=== PATIENT | male | born 1950 | race Caucasian/White ===

== ENCOUNTER 2019-10-14 10:14 | Emergency (ER) | payer MEDICARE ==
[2019-10-14 10:20] VITALS: RESP 16
[2019-10-14] MEDS ORDERED: SODIUM CHLORIDE 0.9% 500 ML 500 ML IV STA (10:30)
[2019-10-14] MEDS ORDERED: SODIUM CHLORIDE 0.9% 1,000 ML IV ONE (10:31)
--- NOTE | 2019-10-14 11:40 | XR ---
EXAMINATION TYPE: XR KUB DATE OF EXAM: 10/14/2019 11:24 AM CLINICAL HISTORY: Abdominal pain and diarrhea for 4 days. TECHNIQUE: Two Upright KUB images of the abdomen are obtained. COMPARISON: None. FINDINGS: Some paucity of bowel gas. Scattered gas is seen in some nondistended and a few slightly pr ominent small bowel loops in the left abdomen. Few scattered air-fluid levels are present. Gas and fe shaheen material is seen in non-distended colon in the right abdomen. There is no visceromegaly or pneumo peritoneum. The lung bases are clear. Surgical change L4-S1 level is present. Superior to this there is scoliotic curvature. Partial visualization of surgical change right hip level. Vascular calcificat ion overlying the abdominal aorta. IMPRESSION: Overall nonspecific but favor nonobstructive bowel gas pattern.
[2019-10-14 12:11] VITALS: PULSE 63
[2019-10-14 12:25] LABS: Appearance,Urine Clear (Clear); Bilirubin,Urine Negative (Negative); Blood,Urine Negative (Negative); Color,Urine Yellow; Glucose,Urine (UA) Negative (Negative); Ketones,Urine Negative (Negative); Leukocyte Esterase,Urine Negative (Negative); Nitrite,Urine Negative (Negative); PH, Urine 5.5 (5.0-8.0); Protein,Urine Negative (Negative); Specific Gravity,Urine 1.011 (1.001-1.035); Urobilinogen,Urine <2.0 mg/dL (<2.0)
[2019-10-14 12:33] LABS: Basophils % (A) 0 %; Eosinophils # (A) 0.1 k/uL (0-0.7); Eosinophils % (A) 1 %; HCT 35.4 % (39.0-53.0); HGB 11.6 gm/dL (13.0-17.5); Lymphocytes # (A) 0.7 k/uL (1.0-4.8); Lymphocytes % (A) 7 %; MCHC 32.8 g/dL (31.0-37.0); MCV 94.5 fL (80.0-100.0); Mean Platelet Volume 6.5; Monocytes # (A) 0.5 k/uL (0-1.0); Monocytes % (A) 5 %; Neutrophils # (A) 8.6 k/uL (1.3-7.7); Neutrophils % (A) 87 %; Platelet Count 305 k/uL (150-450); RBC 3.75 m/uL (4.30-5.90); RDW 13.1 % (11.5-15.5); WBC 9.9 k/uL (3.8-10.6)
[2019-10-14 12:39] LABS: ALT 42 U/L (4-49); AST 37 U/L (17-59); African American GFR (CKD) >90 (>60 ml/min/1.73 sqM); Albumin 3.5 g/dL (3.5-5.0); Alkaline Phosphatase 100 U/L (38-126); Anion Gap 9 mmol/L; Blood Urea Nitrogen 20 mg/dL (9-20); Calcium 9.3 mg/dL (8.4-10.2); Carbon Dioxide 24 mmol/L (22-30); Chloride 101 mmol/L (98-107); Glucose 104 mg/dL (74-99); Non-African American GFR(CKD) 80 (>60 ml/min/1.73 sqM); Potassium 4.9 mmol/L (3.5-5.1); Sodium 134 mmol/L (137-145); Total Bilirubin 0.4 mg/dL (0.2-1.3); Total Protein 6.5 g/dL (6.3-8.2)
--- NOTE | 2019-10-14 13:27 | ED ---
Nausea/Vomiting/Diarrhea HPI - General Chief complaint: Nausea/Vomiting/Diarrhea Stated complaint: C-diff Time Seen by Provider: 10/14/19 10:30 Source: patient Mode of arrival: ambulatory Limitations: no limitations - History of Present Illness Initial comments: 69-year-old male presenting today for chief complaint of diarrhea abdominal cramping. 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 Patient states a drink from a rain water tank he states that he has had some soft stools and abdominal cramping since he states his on-and-off nausea none currently. Denies vomiting. He denies any fevers bloody stools or dark black stools. Patient is no additional complaints upon arrival he appears well nontoxic no acute distress. - Related Data Allergies Allergy/AdvReac Type Severity Reaction Status Date / Time Sulfa (Sulfonamide Allergy Unknown Verified 10/14/19 10:20 Antibiotics) Childhood Review of Systems ROS Statement: Those systems with pertinent positive or pertinent negative responses have been documented in the HPI. ROS Other: All systems not noted in ROS Statement are negative. Past Medical History Past Medical History: Hypertension History of Any Multi-Drug Resistant Organisms: None Reported Past Surgical History: Joint Replacement Additional Past Surgical History / Comment(s): hip replaced, Past Psychological History: No Psychological Hx Reported Smoking Status: Former smoker Past Alcohol Use History: Occasional Past Drug Use History: None Reported General Exam - General Exam Comments Initial Comments: General: The patient is awake and alert, in no distress, and does not appear acutely ill. Eye: Pupils are equal, round and reactive to light, extra-ocular movements are intact. No nystagmus. There is normal conjunctiva bilaterally. No signs of i cterus. Ears, nose, mouth and throat: There are moist mucous membranes and no oral lesions. Neck: The neck is supple, there is no tenderness or JVD. Cardiovascular: There is a regular rate and rhythm. No murmur, rub or gallop is appreciated. Respiratory: Lungs are clear to auscultation, respirations are non-labored, breath sounds are equal. No wheezes, stridor, rales, or rhonchi. Gastrointestinal: Soft, non-distended, non-tender abdomen without masses or organomegaly noted. There is no rebound or guarding present. Musculoskeletal: Normal ROM, no tenderness. Strength 5/5. Sensation intact. Pulses equal bilaterally 2+. Neurological: A&O x 3. CN II-XII intact, There are no obvious motor or sensory deficits. Coordination appears grossly intact. Speech is normal. Skin: Skin is warm and dry and no rashes or lesions are noted. Psychiatric: Cooperative, appropriate mood & affect, normal judgment. Limitations: no limitations Course Vital Signs 10/14/19 10/14/19 10/14/19 10:16 12:07 13:52 Temperature 98.7 F 97.9 F Pulse Rate 72 63 63 Respiratory 16 16 16 Rate Blood Pressure 131/86 123/70 138/81 O2 Sat by Pulse 99 97 98 Oximetry Medical Decision Making - Medical Decision Making c diff (-). KUB WNL. Patient labs stable. Patient abdomen soft nontender. no fevers. no bloody stools. Recommend symptomatic treatment wtih pcp f/u. return parameters and importance of pcp f/u were discussed. - Lab Data Result diagrams: 10/14/19 11:42 10/14/19 11:42 Lab Results 10/14/19 10/14/19 10/14/19 Range/Units 11:42 11:42 12:13 WBC 9.9 (3.8-10.6) k/uL RBC 3.75 L (4.30-5.90) m/uL Hgb 11.6 L (13.0-17.5) gm/dL Hct 35.4 L (39.0-53.0) % MCV 94.5 (80.0-100.0) fL MCH 31.0 (25.0-35.0) pg MCHC 32.8 (31.0-37.0) g/dL RDW 13.1 (11.5-15.5) % Plt Count 305 (150-450) k/uL Neutrophils % 87 % Lymphocytes % 7 % Monocytes % 5 % Eosinophils % 1 % Basophils % 0 % Neutrophils # 8.6 H (1.3-7.7) k/uL Lymphocytes # 0.7 L (1.0-4.8) k/uL Monocytes # 0.5 (0-1.0) k/uL Eosinophils # 0.1 (0-0.7) k/uL Basophils # 0.0 (0-0.2) k/uL Sodium 134 L (137-145) mmol/L Potassium 4.9 (3.5-5.1) mmol/L Chloride 101 (98-107) mmol/L Carbon Dioxide 24 (22-30) mmol/L Anion Gap 9 mmol/L BUN 20 (9-20) mg/dL Creatinine 0.98 (0.66-1.25) mg/dL Est GFR (CKD-EPI)AfAm >90 (>60 ml/min/1.73 sqM) Est GFR (CKD-EPI)NonAf 80 (>60 ml/min/1.73 sqM) Glucose 104 H (74-99) mg/dL Calcium 9.3 (8.4-10.2) mg/dL Total Bilirubin 0.4 (0.2-1.3) mg/dL AST 37 (17-59) U/L ALT 42 (4-49) U/L Alkaline Phosphatase 100 (38-126) U/L Total Protein 6.5 (6.3-8.2) g/dL Albumin 3.5 (3.5-5.0) g/dL Lipase 28 (23-300) U/L Urine Color Yellow Urine Appearance Clear (Clear) Urine pH 5.5 (5.0-8.0) Ur Specific Morley 1.011 (1.001-1.035) Urine Protein Negative (Negative) Urine Glucose (UA) Negative (Negative) Urine Ketones Negative (Negative) Urine Blood Negative (Negative) Urine Nitrite Negative (Negative) Urine Bilirubin Negative (Negative) Urine Urobilinogen <2.0 (<2.0) mg/dL Ur Leukocyte Esterase Negative (Negative) C. difficile (EIA) Intrp (Negative) 10/14/19 Range/Units 12:13 WBC (3.8-10.6) k/uL RBC (4.30-5.90) m/uL Hgb (13.0-17.5) gm/dL Hct (39.0-53.0) % MCV (80.0-100.0) fL MCH (25.0-35.0) pg MCHC (31.0-37.0) g/dL RDW (11.5-15.5) % Plt Count (150-450) k/uL Neutrophils % % Lymphocytes % % Monocytes % % Eosinophils % % Basophils % % Neutrophils # (1.3-7.7) k/uL Lymphocytes # (1.0-4.8) k/uL Monocytes # (0-1.0) k/uL Eosinophils # (0-0.7) k/uL Basophils # (0-0.2) k/uL Sodium (137-145) mmol/L Potassium (3.5-5.1) mmol/L Chloride (98-107) mmol/L Carbon Dioxide (22-30) mmol/L Anion Gap mmol/L BUN (9-20) mg/dL Creatinine (0.66-1.25) mg/dL Est GFR (CKD-EPI)AfAm (>60 ml/min/1.73 sqM) Est GFR (CKD-EPI)NonAf (>60 ml/min/1.73 sqM) Glucose (74-99) mg/dL Calcium (8.4-10.2) mg/dL Total Bilirubin (0.2-1.3) mg/dL AST (17-59) U/L ALT (4-49) U/L Alkaline Phosphatase (38-126) U/L Total Protein (6.3-8.2) g/dL Albumin (3.5-5.0) g/dL Lipase (23-300) U/L Urine Color Urine Appearance (Clear) Urine pH (5.0-8.0) Ur Specific Morley (1.001-1.035) Urine Protein (Negative) Urine Glucose (UA) (Negative) Urine Ketones (Negative) Urine Blood (Negative) Urine Nitrite (Negative) Urine Bilirubin (Negative) Urine Urobilinogen (<2.0) mg/dL Ur Leukocyte Esterase (Negative) C. difficile (EIA) Intrp Negative (Negative) Disposition Clinical Impression: Diarrhea Disposition: HOME SELF-CARE Condition: Good Instructions (If sedation given, give patient instructions): Acute Diarrhea (ED) Additional Instructions: Please use medication as discussed. Please follow-up with family doctor in the next 2 days. Please return to emergency room if the symptoms increase or worsen or for any other concerns. Is patient prescribed a controlled substance at d/c from ED?: No Referrals: Nonstaff,Physician [Primary Care Provider] - 1-2 days Time of Disposition: 13:27
[2019-10-14 13:54] VITALS: BP 138/81; TEMP 97.9
== END 2019-10-14 13:52 | disposition home or self-care (01) ==
LOC: EC 10:14
DX: R19.7 Diarrhea, unspecified (principal); R10.9 Unspecified abdominal pain; Z88.2 Allergy status to sulfonamides; Z87.891 Personal history of nicotine dependence
CPT/HCPCS: 36415; 74018; 80053; 81003; 83690; 85025; 87045; 87046; 87324; 96360; 99284